=== PATIENT | female | born 1995 | race Caucasian/White ===

== ENCOUNTER → 2017-06-14 | Day surgery (SDC) | payer OTHER ==
[~2017-06-14] MED LIST: BUPIVACAINE HCL 0.5% INJ 30 ML VIAL INJ ONE; BUSPAR; CEFAZOLIN SOD 1 GM VIAL ONE; DEXAMETHASONE SOD PHOS INJ 4 MG/ML VIAL ONE; DOXEPIN; EFFEXOR ER; EFFEXOR XR 3737.5 MG PO; FENTANYL CITRATE/PF 100MCG/2 ML INJ ONE; GABAPENTIN300 MG PO; HEMOCYTE PLUS1 EACH; LIDOCAINE HCL 2% LOCAL INJ 5 ML SDV VIAL INJ ONE; MIDAZOLAM HCL 2 MG/2 ML VIAL ONE; NEOSTIGMINE 1 MG/ML 10ML VIAL ONE; ONDANSETRON HCL INJ 2 MG/ML VIAL ONE; PAXIL30 MG PO; PROPOFOL IV EMULSION 10 MG/ML 20 ML VIAL ONE; SEROQUEL200 MG PO; SEROQUEL25 MG PO; SEVOFLURANE INHAL SOLN 250 ML PEN BTL ONE; TESTOSTERO200 MG/1 M; TYLENOL WITH C1 EACH PO
--- OUTSIDE RECORDS SUMMARY | 2017-06-14 05:13 | XMS REPORT ---
Author Author Admin, [place] Organization [facility] [place] Adult [facility] Address Unknown Phone Unavailable Allergies, Adverse Reactions, Alerts Allergy Name Reaction Description Start Date Severity Status Provider HYDROCODONE Critical Active Logan Kraig O'Rene ROOFER APPLICATOR-C Conditions or Problems Problem Name Problem Code Onset Date Status Entry Date Provider Comment Standard Description Annotate Anemia unspecified 285.9 Active Logan Kraig O'Rene ROOFER APPLICATOR-C Anemia, unspecified Dyslipidemia 272.4 Active Logan Kraig O'Rene ROOFER APPLICATOR-C Other and unspecified hyperlipidemia BMI 45.0-49.9 Active Logan Kraig O'Rene ROOFER APPLICATOR-C Body Mass Index 45.0-49.9, adult Elevated blood pressure 796.2 Active Logan Kraig O' Rene ROOFER APPLICATOR-C Elevated blood pressure reading without diagnosis of hypertension Hormone imbalance 259.9 Active Logan Kraig O'Rene ROOFER APPLICATOR-C Unspecified endocrine disorder transmasculine MORBID OBESITY Active Logan Kraig O'Rene ROOFER APPLICATOR-C Morbid obesity Prediabetes 790.29 Active Logan Kraig O'Rene ROOFER APPLICATOR-C Other abnormal glucose Vitamin D deficiency 268.9 Active Logan Kraig O' Rene ROOFER APPLICATOR-C Unspecified vitamin D deficiency Acne, mild ICD-706.1 Inactive Logan Kraig O'Rene ROOFER APPLICATOR -C Diabetes, Screening for V77.1 Inactive Logan Kraig O 'Rene ROOFER APPLICATOR-C Screening for diabetes mellitus Diabetes, Screening for ICD-V77.1 Inactive Logan Kraig O'Rene ROOFER APPLICATOR-C Immunization update - HPV (final dose) ICD-V15.9 Inactive Logan Bliss'Rene ROOFER APPLICATOR-C Screening for anemia V78.1 Inactive Logan Bliss' Rene ROOFER APPLICATOR-C Screening for other and unspecified deficiency anemia Screening for anemia ICD-V78.1 Inactive Logan Kraig Bliss'Rene ROOFER APPLICATOR-C Screening for vitamin D deficiency V77.99 Inactive Logan Bliss'Rene ROOFER APPLICATOR-C Screening for other and unspecified endocrine, nutritional, metabolic, and immunity disorders Screening for vitamin D deficiency ICD-V77.99 Inactive Logan Kraig Bliss'Rene ROOFER APPLICATOR-C Screening, Cholesterol V77.91 Inactive Logan Bliss 'Rene ROOFER APPLICATOR-C Screening for lipoid disorders Screening, Cholesterol ICD-V77.91 Inactive Logan Bliss'Rene ROOFER APPLICATOR-C Screening, Thyroid Disorders V77.0 Inactive Logan Cornell O'Rene ROOFER APPLICATOR-C Screening for thyroid disorders Screening, Thyroid Disorders ICD-V77.0 Inactive Logan Bliss'Rene ROOFER APPLICATOR-C Acne, mild 706.1 Resolved Logan Bliss'Rene ROOFER APPLICATOR-C Other acne Immunization update - HPV (final dose) V15.9 Resolved Logan Bliss'Rene ROOFER APPLICATOR-C Unspecified personal history presenting hazards to health Medication List Medication Instructions Start Date Stop Date Generic Name NDC Status Provider Patient Instruction TESTOSTERONE CYPIONATE 200 MG/ML INTRAMUSCULAR SOLUTION 0.4 ml (80mg) injected subcu every 7 days TESTOSTERONE CYPIONATE 12294420608 Active Logan Bliss'Rene ROOFER APPLICATOR-C Active VITAMIN D3 2000 UNIT ORAL TABLET 1 tab By Mouth Every Day CHOLECALCIFEROL 81105648196 Active Logan Beard ROOFER APPLICATOR-C Active BENZACLIN WITH PUMP 1-5 % EXTERNAL GEL Apply small amount to affected area daily or Twice a Day As Needed for acne BENZACLIN WITH PUMP 1-5 % EXTERNAL GEL 400687 CLINDAMYCIN PHOS-BENZOYL PEROX Inactive BENZACLIN WITH PUMP 1-5 % EXTERNAL GEL Apply small amount to affected area daily or Twice a Day As Needed for acne CLINDAMYCIN PHOS-BENZOYL PEROX [id number] No Longer Active Logan Beard ROOFER APPLICATOR-C Active Advance Directives Directive Description Start Date DISCUSSED - NO DECISION MADE Immunizations Vaccine Administration Date Value Standard Description Human Papillomavirus vaccine (Gardasil) #3, (HPV #3) given human papilloma virus vaccine, quadrivalent Human Papillomavirus vaccine (Gardasil) #3, (HPV #3) Drug Name Gardasil 9 human papilloma virus vaccine, quadrivalent Vital Signs Date Name Value Unit Range Description blood pressure, diastolic 93 mm[Hg] BP guardado blood pressure, systolic 137 mm[Hg] BP sys height E&M 59 [in_us] Bdy height pulse rate E&M 79 /min Heart rate temperature E&M 96.9 [degF] Body temperature weight E&M 223 [lb_av] Weight Measured blood pressure, diastolic 94 mm[Hg] BP guardado blood pressure, systolic 143 mm[Hg] BP sys height E&M 59 [in_us] Bdy height pulse rate E&M 98 /min Heart rate temperature E&M 97.7 [degF] Body temperature weight E&M 223.25 [lb_av] Weight Measured Diagnostic Results Date Name Value Unit Range Description Lab Report: CBC With Differential/Platelet, Comp. Metabolic Panel (14), ... - Hematology lymphocyte count, blood, automated 2.2 X10E3/UL 10*3/mm3 0.7- 3.1 Lab Report: Comp. Metabolic Panel (14), CBC, Platelet, No Differential, ... - Chemistry urea nitrogen, blood 8 mg/dL 6-20 creatinine, serum 0.79 mg/dL 0.57-1.00 chloride, serum 99 mmol/L 96-106 Lab Report: Comp. Metabolic Panel (14), CBC, Platelet, No Differential, ... - Hematology mean corpuscular volume, RBC 88 fL 79-97 Lab Report: Comp. Metabolic Panel (14), CBC, Platelet, No Differential, ... - Chemistry triglyceride, serum, fasting 140 mg/dL 0-89 Lab Report: Comp. Metabolic Panel (14), CBC, Platelet, No Differential, ... - Hematology erythrocyte (RBC) count 5.74 X10E6/UL 10*6/mm3 3.77-5.28 Lab Report: Comp. Metabolic Panel (14), CBC, Platelet, No Differential, ... - Chemistry Estimated Glomerular Filtration Rate (calc) 109 mL/min/1.73m2 > 59 Lab Report: Comp. Metabolic Panel (14), CBC, Platelet, No Differential, ... - Hematology platelet count 310 X10E3/UL 10*3/mm3 862-446 2667/03/13 red blood cell distribution width 13.3 % 12.3-15.4 Lab Report: Comp. Metabolic Panel (14), CBC, Platelet, No Differential, ... - Chemistry protein, total, serum 8.1 g/dL 6.0-8.5 HDL cholesterol, serum 30 mg/dL >39 albumin/globulin ratio, serum 1.4 1.2-2.2 Lab Report: CBC With Differential/Platelet, Comp. Metabolic Panel (14), ... - Hematology eosinophils as percent of blood leukocytes 0 % Lab Report: CBC With Differential/Platelet, Comp. Metabolic Panel (14), ... - Chemistry Absolute Neutrophils 9.1 X10E3/UL 10*3/uL 1.4-7.0 Lab Report: CBC With Differential/Platelet, Comp. Metabolic Panel (14), ... - Hematology basophil count, absolute 0.0 x10E3/uL 0.0-0.2 Lab Report: Comp. Metabolic Panel (14), CBC, Platelet, No Differential, ... - Chemistry alanine aminotransferase (SGPT), serum 55 U/L 0-32 LDL cholesterol, serum 154 mg/dL 0-109 Lab Report: CBC With Differential/Platelet, Comp. Metabolic Panel (14), ... - Hematology monocytes as percent of blood leukocytes 5 % Lab Report: Comp. Metabolic Panel (14), CBC, Platelet, No Differential, ... - Chemistry cholesterol, serum 212 mg/dL 100-169 Lab Report: Comp. Metabolic Panel (14), CBC, Platelet, No Differential, ... - Hematology mean corpuscular hemoglobin concentration, RBC 34.1 G/DL % 31.5- 35.7 hemoglobin, blood 17.2 g/dL 11.1-15.9 leukocyte count, blood 7.3 X10E3/UL 10*3/mm3 3.4-10.8 hematocrit, blood 50.4 % 34.0-46.6 Lab Report: Comp. Metabolic Panel (14), CBC, Platelet, No Differential, ... - Chemistry globulin, serum 3.4 1.5-4.5 vitamin D 25-hydroxy, serum 23.4 ng/mL 30.0-100.0 testosterone, serum, free 21.9 pg/mL Not Estab. Lab Report: CBC With Differential/Platelet, Comp. Metabolic Panel (14), ... - Chemistry thyroid stimulating hormone, serum 2.050 u[iU]/mL 0.450-4.500 Lab Report: Comp. Metabolic Panel (14), CBC, Platelet, No Differential, ... - Chemistry albumin, serum 4.7 g/dL 3.5-5.5 very low density lipoproteins 28 mg/dL 5-40 calcium, serum 10.1 mg/dL 8.7-10.2 Lab Report: CBC With Differential/Platelet, Comp. Metabolic Panel (14), ... - Hematology basophils as percent of blood leukocytes 0 % monocyte count, blood, automated 0.6 X10E3/UL 10*3/uL 0.1-0.9 Lab Report: Comp. Metabolic Panel (14), CBC, Platelet, No Differential, ... - Chemistry urea nitrogen/creatinine ratio, serum 10 9-23 Lab Report: CBC With Differential/Platelet, Comp. Metabolic Panel (14), ... - Chemistry immature granulocytes, percentage of total cells, blood 0 % Lab Report: Comp. Metabolic Panel (14), CBC, Platelet, No Differential, ... - Genetics/fertility eGFR if 125 mL/min/1.73m2 >59 Lab Report: CBC With Differential/Platelet, Comp. Metabolic Panel (14), ... - Hematology lymphocytes as percent of blood leukocytes 19 % Lab Report: Comp. Metabolic Panel (14), CBC, Platelet, No Differential, ... - Chemistry carbon dioxide, venous blood 26 mmol/L 18-29 sodium, serum 144 mmol/L 134-144 Lab Report: CBC With Differential/Platelet, Comp. Metabolic Panel (14), ... - Chemistry hemoglobin A1C, blood, as % of total hemoglobin 6.0 % 4.8-5.6 Lab Report: Comp. Metabolic Panel (14), CBC, Platelet, No Differential, ... - Chemistry alkaline phosphatase, serum 80 U/L 39-117 testosterone, total 603 ng/dL Lab Report: CBC With Differential/Platelet, Comp. Metabolic Panel (14), ... - Hematology Eosinophil Absolute Count 0.0 X10E3/UL 10*3/uL 0.0-0.4 Lab Report: Comp. Metabolic Panel (14), CBC, Platelet, No Differential, ... - Hematology mean corpuscular hemoglobin, RBC 30.0 pg 26.6-33.0 Lab Report: Comp. Metabolic Panel (14), CBC, Platelet, No Differential, ... - Chemistry bilirubin, serum, total 0.6 mg/dL 0.0-1.2 Lab Report: CBC With Differential/Platelet, Comp. Metabolic Panel (14), ... - Hematology neutrophils as percent of blood leukocytes 76 % Lab Report: Comp. Metabolic Panel (14), CBC, Platelet, No Differential, ... - Chemistry blood glucose, random 94 mg/dL 65-99 potassium, serum 5.2 mmol/L 3.5-5.2 aspartate aminotransferase (SGOT), serum 29 U/L 0-40 Encounters Date Encounter Provider Code Facility 10:29:39 CDT Est Patient Exp Problem - 36165 Logan Kraig Bliss'Rene ROOFER APPLICATOR-C CPT-25776 [facility] [place] [facility] 11:38:36 CDT Est Patient Detailed - 89349 Logan Kraig Bliss'Rene ROOFER APPLICATOR- C CPT-21108 [facility] [place] [facility] 15:22:59 MEDICINAL CHEMIST Est Patient Detailed - 74512 Logan Kraig O'Rene ROOFER APPLICATOR- C CPT-42181 [facility] [place] Adult [facility] 16:54:09 MEDICINAL CHEMIST New Patient Detailed - 08038 Logan Kraig Bliss'Rene ROOFER APPLICATOR- C CPT-10789 [facility] [place] Adult [facility] Procedures Code Procedure Name Date Entry Date Standard Description CPT-03630 Gardasil (HPV) 9 - valent 16:56:00 MEDICINAL CHEMIST CPT-36799 Admin of Vaccine - Injection - 1 16:56:00 MEDICINAL CHEMIST
--- OUTSIDE RECORDS SUMMARY | 2017-06-14 05:13 | XMS REPORT ---
Author Author [facility] Address Unknown Phone Unavailable Care Team Providers Care Photoengraver Name Role Phone MARY ESCOBEDO Unavailable Unavailable Problems This patient has no known problems. Allergies, Adverse Reactions, Alerts This patient has no known allergies or adverse reactions. Medications This patient has no known medications. Results Test Description Test Time Test Comments Text Results Atomic Results Result Comments CHEST SINGLE (PORTABLE) [place] [address] Patient Name: YEISON PUENTES MR #: [id number] : 1995 Age/Sex: 21/F Req #: [id number] Adm Physician: Ordered by: JENISE ARAIZA MD Report #: [id number] Location: OR Room/Bed: Procedure: [id number] DX/CHEST SINGLE (PORTABLE) Exam Date: 12/08/16 Exam Time: 929 REPORT STATUS: Signed PROCEDURE: CHEST SINGLE (PORTABLE) TECHNIQUE: Portable AP chest INDICATION: Shortness of breath; wheezing COMPARISON: None. FINDINGS: Low lung volumes with associated vascular crowding. Normal heart size, mediastinal contour and pulmonary vasculature for technique and inspiration. Intact skeleton. CONCLUSION: Low lung volume without acute abnormality. Dictated by: Kyle Wiley M.D. on 12/08/2016 at 10:06 Electronically approved by: Kyle Wiley M.D. on 12/08/2016 at 10:06 Dictated By: KYLE WILEY MD 1006 Transcribed By: ELTON on 12/08/16 1006 COPY TO: JENISE ARAIZA MD
--- OUTSIDE RECORDS SUMMARY | 2017-06-14 05:13 | XMS REPORT | Clinical Summary ---
Author Author Phil [facility] Organization [facility] Address Unknown Phone Unavailable Care Team Providers Care Personal Lines Sales Executive Name Role Phone Ba Villa DO PCP Allergies Active Allergy Reactions Severity Noted Date Comments Hydrocodone 02/10/2016 Current Medications Prescription Sig. Disp. Refills Start End Date Status Date doxepin (SINEquan) 10 MG TK 1 C PO QD 0 10/27/19 Active capsule 17 busPIRone (BUSPAR) 30 MG Take 30 mg by mouth 2 Active tablet (two) times a day. HEMOCYTE-PLUS 106 mg TK 1 C PO QD 3 11/11/19 Active iron- 1 mg capsule 17 testosterone cypionate INJECT 0.4 ML SC Q 7 1 10/08/19 Active (DEPOTESTOTERONE DAYS. 17 CYPIONATE) 200 mg/mL injection venlafaxine XR TK 3 CS PO QD WF 0 10/27/19 Active (EFFEXOR-XR) 75 MG 24 hr 17 capsule venlafaxine XR TK 1 C PO QD WF 1 10/17/19 Active (EFFEXOR-XR) 150 MG 24 hr 17 capsule gabapentin (NEURONTIN) Take 300 mg by mouth 3 Active 300 mg capsule (three) times a day. PARoxetine (PAXIL) 10 MG Take 10 mg by mouth every Active tablet morning. allopurinol (ZYLOPRIM) Take 100 mg by mouth 11/24/19 Discontin 100 MG tablet daily. 17 ued traMADol-acetaminophen TK 1 TO 2 TS PO Q 4 TO 6 0 11/03/19 11/24/19 Discontin (ULTRACET) 37.5-325 mg H PRN 17 17 ued per tablet venlafaxine (EFFEXOR) 100 Take 100 mg by mouth 2 11/24/19 Discontin MG tablet (two) times a day. 17 ued acetaminophen-codeine Take 1 tablet by mouth 11/24/19 Discontin (TYLENOL WITH CODEINE #3) every 4 (four) hours as 17 ued 300-30 mg per tablet needed for moderate pain. keTOROlac (TORadol) 10 mg Take 10 mg by mouth every 11/24/19 Discontin tablet 6 (six) hours as needed 17 ued for moderate pain. methylPREDNISolone TK UTD 0 11/10/19 11/24/19 Discontin (MEDROL DOSEPAK) 4 mg 17 17 ued tablet busPIRone (BUSPAR) 15 MG TK 1 T PO BID 1 10/17/19 11/24/19 Discontin tablet 17 17 ued Hospital, Clinic, or Ordered Dose Route Frequency Start End Date Status Other Facility Date Administered Medication betamethasone acetate & 3 mg lesn Once 11/10/19 11/24/19 Discontin sodium phosphate 17 17 ued (CELESTONE) injection 3 mgIndications: Madelung's deformity lidocaine (XYLOCAINE) 10 5 mg inj Once 11/10/19 11/24/19 Discontin mg/mL (1 %) injection 5 17 17 ued mgIndications: Madelung's deformity Active Problems Problem Noted Date Anu'darcie avascular necrosis of lunate, 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 Right wrist pain 11/30/2015 Encounters Date Type Specialty Care Team Description 03/29/2017 Office Visit Orthopedic Surgery Silvana Hernandes Left wrist pain (Primary MD Margie Dx) 02/17/2017 Office Visit Orthopedic Surgery Silvana Hernandes MD necrosis of lunate, adult (Primary Dx) 01/18/2017 Office Visit Orthopedic Surgery Silvana Hernandes MD necrosis of lunate, adult (Primary Dx); Right wrist pain 12/14/2016 Office Visit Orthopedic Surgery Silvana Hernandes MD necrosis of lunate, adult (Primary Dx); Right wrist pain 12/07/2016 Office Visit Orthopedic Surgery Silvana Hernandes MD necrosis of lunate, adult (Primary Dx) 11/28/2016 [facility] General Surgery Silvana Hernandes MD 11/28/2016 Procedure Pass General Surgery 11/28/2016 Surgery General Surgery Silvana Hernandes FUSION W/ MD Margie DENERVATION-RIGHT WRIST 11/23/2016 Hospital Radiology Silvana Hernandes Preoperative testing Encounter MD Margie 11/23/2016 Pre-Admit Pre-Admission Testing Silvana Hernandes Preoperative testing Testing MD Margie (Primary Dx) Appointment 11/23/2016 Anesthesia General Surgery Yadira Garcia MD Event 11/10/2016 Office Visit Orthopedic Surgery Silvana Hernandes Kienbock' s avascular MD Margie necrosis of lunate, adult (Primary Dx) 11/04/2016 Office Visit Orthopedic Surgery Silvana Hernandes Bilateral wrist pain MD Margie (Primary Dx); Madelung's deformity; Kienbock's avascular necrosis of lunate, 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 Family History Medical History Relation Name Comments Hypertension Mother Relation Name Status Comments Mother Social History Tobacco Use Types Packs/Day Years Used Date Never Smoker Smokeless Tobacco: Never Used Alcohol Use Drinks/Week oz/Week Comments No Sex Assigned at Date Recorded Not on file Last Filed Vital Signs Vital Sign Reading Time Taken Blood Pressure 131/69 11/28/2016 12:05 PM CDT Pulse 0 11/28/2016 12:15 PM CDT Temperature 36.7 C (98 F) 11/28/2016 12:05 PM CDT Respiratory Rate 10 11/28/2016 12:05 PM CDT Oxygen Saturation 90% 11/28/2016 12:05 PM CDT Inhaled Oxygen - - Concentration Weight 101 kg (222 lb 10.6 oz) 03/29/2017 2:22 PM [facility] Height 149.9 cm (4' 11") 03/29/2017 2:22 PM [facility] Body Mass Index 44.97 03/29/2017 2:22 PM [facility] Plan of Treatment Health Maintenance Due Date Last Done Comments CHLAMYDIA SCREENING 2013 INFLUENZA VACCINE 10/11/2017 Implants Implanted Type Area Electric Meter Tester Shop Device Expiration Model / Identifier Date Serial / Lot Putjono Marino [place] Tiss Form Jar 5ml Human Right: [employer] 2019 [id number] / - [id number] - [id number] Tissue Wrist SPINAL GRAFT [id number] Implanted: Qty: 1 on 11/28/2016 by [employer]plants [employer] / Silvana Hernandes MD [id number] Unicortical Screw, 2.8mm X 5.0mm, IPM Right: SKELETAL UCNL [id number] Ti, Wrist Arthrodesis Nails - IMPLANT Wrist DYNAMICS TS / [id number] DEVICES / Implanted: Qty: 1 on 11/28/2016 by VENDOR LOT Silvana Hernandes MD NA Implate Wrist Arthrodesis Nail, IPM Right: SKELETAL IMP MCN Metacarpal, Standard, 4.0, Ti - IMPLANT Wrist DYNAMICS S40 / [id number] DEVICES / Implanted: Qty: 1 on 11/28/2016 by VENDOR Silvana Morel MD NA Unicortical Screw, 2.8mm X 10.0mm, IPM Right: SKELETAL UCNL [id number] Ti, Wrist Arthrodesis Nails - IMPLANT Wrist DYNAMICS TS / [id number] DEVICES / Implanted: Qty: 2 on 11/28/2016 by VENDOR Silvana Morel MD NA Set Screw, 3.0mm X 2.0mm, Cocr, IPM Right: SKELETAL STSC [id number] Wrist Arthrodesis Nails - [id number] IMPLANT Wrist DYNAMICS CS / Implanted: Qty: 2 on 11/28/2016 by DEVICES / Silvana Hernandes MD VENDOR LOT NA Implate Wrist Arthrodesis Nail, IPM Right: SKELETAL IMP DRN Distal Radius, Short, Ti - IMPLANT Wrist DYNAMICS SHT / [id number] DEVICES / Implanted: Qty: 1 on 11/28/2016 by 11/19/9998 Silvana Hernandes MD Procedures Procedure Name Priority Date/Time Associated Diagnosis Comments ANESTHESIA PERIPHERAL Routine 11/28/2016 BLOCK 9:34 AM CDT Procedure Note - Nellie Burks MD - 11/28/2016 9:23 AM CDT Peripheral Block Performed by: NELLIE BURKS Authorized by: NELLIE BURKS Patient location: OR. Start Time: 11/28/2016 9:23 AM Staff: Anesthesio logist: NELLIE BURKS Performed by: Anesthesio logist Preprocedu re: patient identified , IV checked, site and side verified, risks and benefits discussed, procedure verified, surgical consent complete, patient position confirmed, monitors and equipment checked, pre-op evaluation complete and site marked Peripheral Nerve Block: Patient Position: Supine Prep: Betadine and patient draped Monitoring : Blood pressure monitoring , continuous pulse oximetry, heart rate and CO2 Block Type: Supraclavi cular Laterality : Right Injection Technique: Single injection Procedures : ultrasound guided Local Infiltrati on (See MAR for details): Ropivacain e Needle: Needle Type: Tuohy Needle gauge: 18g. Assessment : Injection Assessment : Visualized needle/loc al anesthetic surroundin g nerve, visualized pertinent vascular structures and nerves, needle tip visualized at all times during injection of medication , intermitte nt aspiration during local anesthetic administra tion and no symptoms of intraneura l/intraven ous injection Heart Rate Change: No Slow Fractionat ed Injection: Yes Block outcome: No apparent complicati ons, patient comfortabl e and patient tolerated procedure well FUSION W/ 11/28/2016 Kienbock disease, adult DENERVATION-RIGHT WRIST 9:10 AM CDT Special Needs BMI 42.49NERVE BLOCKHAND TABLE MINI C-ARMHAND & FOOT SETHIGH -SPEED BURRDBX PUTTY 5CCSKELETA L DYNAMICS IMPLATE IMPLANTS after 06/13/2016 Results * XR Wrist 3+ Vw Left (03/29/2017 2:34 PM) Specimen Performing Laboratory [facility] [address] [place] [address] Narrative 3 views left wrist: Significantly ulnar-negative with abnormal slope to the radius. Lunate is normal appearing. Cartilage surfaces appear well maintained. * XR Wrist 2 Vw Right (02/17/2017 2:11 PM) Only the most recent of 2 results within the time period is included. Specimen Performing Laboratory [facility] [address] [place] [address] Narrative 2 v R wrist:IMPLATE IM nail in place in wrist with some solid fusion mass visible on ulnar aspect. * XR Wrist 3+ Vw Right (01/18/2017 9:57 AM) Spec[facility] [address] [place] [address] Narrative Intramedullary nail and screws are in place without any signs of loosening or breakage. It looks like there is some beginning of fusion across the radial lunate and intercarpal joint. * XR Chest 2 Vw (11/23/2016 11:03 AM) Specimen Performing Laboratory [facility] [address] [place] [address] Narrative EXAMINATION:XR CHEST 2 VW CLINICAL HISTORY:Z01.818 Encounter for other preprocedural examination, PREOP COMPARISON:None IMPRESSION: 1.Lungs are clear and the heart size is normal. 2.The vessels are not congested. There are no pleural effusions. [id number] Procedure Note Hm Interface, Radiology Results Incoming - 11/23/2016 11:13 AM CDT EXAMINATION: XR CHEST 2 VW CLINICAL HISTORY: Z01.818 Encounter for other preprocedural examination, PREOP COMPARISON: None IMPRESSION: 1. Lungs are clear and the heart size is normal. 2. The vessels are not congested. There are no pleural effusions. [id number] * ECG Pre/Post Op (11/23/2016 10:25 AM) Component Value Ref Range Ventricular rate 76 Atrial rate 76 OK interval 108 QRSD interval 90 QT interval 352 QTC interval 396 QRS axis 1 179 T wave axis 177 EKG impression Sinus rhythm with short OK-Right axis deviation-ST & T wave abnormality, consider inferior ischemia-Abnormal ECG-No previous ECGs available- Specimen Performing Laboratory [facility] [address] [place] [id number] * Urinalysis, automated with microscopy (11/23/2016 10:09 AM) Component Value Ref Range Color, UA Yellow Appearance, UA Clear Specific gravity, UA 1.009 1.001 - 1.035 pH, UA 7.0 5.0 - 8.5 Protein, UA Negative Negative Glucose, UA Negative Negative Ketones, UA Negative Negative Bilirubin, UA Negative Negative Blood, UA Negative Negative Nitrite, UA Positive (A) Negative Urobilinogen, UA Negative <2.0 Leukocyte esterase, UA Large (A) Negative Epithelial cells, UA Few /HPF WBC, UA 6 (H) 0 - 5 /HPF RBC, UA 2 0 - 5 /HPF Bacteria, UA Trace None seen Yeast, UA None seen Yeast with pseudohyphae, None seen UA Specimen Performing Laboratory Urine [facility] [address] [place] [address] * Estimated GFR (11/23/2016 10:07 AM) Component Value Ref Range GFR Non Af Amer >90 mL/min/1.73 m2 GFR Af Amer >90 mL/min/1.73 m2 Comment: Chronic kidney disease: <60 mL/min/1.73m2 Kidney failure: <15 mL/min/1.73m2 The estimated GFR is calculated from the IDMS-traceable Modification of Diet in Renal Disease Equation. The accuracy of the calculation is poor when the creatinine is normal. Calculated values >90 mL/min/1.73m2 are not reported. This equation has not been validated in children (<18 years), women, the elderly (>70 years), or ethnic groups other than Caucasians and Americans. Specimen Performing Laboratory Plasma specimen [facility]OM[facility]IC[facility] [address] [place] [address] * Partial thromboplastin time, activated (11/23/2016 10:07 AM) Component Value Ref Range PTT 35.2 23.0 - 36.0 sec Comment: PTT therapeutic range for unfractionated heparin is 61.0-112.0 seconds which corresponds to Anti-Xa 0.3-0.7 U/ml. Note: Change in Panic Value The PTT Panic Value is changing from 110 sec. to 100 sec. due to new instrumentation and reagents. Correlation studies have been performed to validate this result. Specimen Performing Laboratory Blood [facility] GENOM[facility]IC[facility] [address] [place] [address] * Prothrombin time with INR (11/23/2016 10:07 AM) Component Value Ref Range Prothrombin time 13.3 12.0 - 15.0 sec INR 1.01 0.92 - 1.12 Comment: For patients on anticoagulant therapy, reference ranges below: Indication: INR Value Treatment of Venous Thrombosis, 2.0-3.0 pulmonary emboli, or prophylaxis of a venous thrombosis, or systemic emboli. High dose, high risk patients 3.0-4.5 with mechanical valves. NOTE: INR values over 3.0 are sometimes associated with gastrointestinal hemorrhage, especially values over 4.0. Specimen Performing Laboratory Blood [facility] GENOM[facility]IC[facility] [address] [place] [address] * CBC with platelet and differential (11/23/2016 10:07 AM) Component Value Ref Range WBC 6.5 4.5 - 12.5 k/uL RBC 6.05 (H) 4.04 - 5.86 m/uL HGB 14.5 11.5 - 15.3 g/dL HCT 46.1 (H) 34.0 - 45.0 % MCV 76.2 (L) 80.0 - 98.0 fL MCH 24.0 (L) 27.0 - 34.0 pg MCHC 31.5 31.5 - 36.5 g/dL RDW - SD 60.1 (H) 37.0 - 51.0 fL MPV 11.4 (H) 7.4 - 10.4 fL Platelet count 366 150 - 400 k/uL Nucleated RBC 0.00 /100 WBC Neutrophils 38.6 36.0 - 66.0 % Lymphocytes 44.7 (H) 24.0 - 44.0 % Monocytes 13.9 (H) 0.0 - 6.0 % Eosinophils 1.4 0.0 - 6.0 % Basophils 1.2 0.0 - 1.2 % Immature granulocytes 0.2 0.0 - 1.0 % Specimen Performing Laboratory Blood [facility] GENOMIC MEDICINE [address] [place] [address] * Comprehensive metabolic panel (11/23/2016 10:07 AM) Component Value Ref Range Sodium 140 135 - 150 mEq/L Potassium 4.0 3.5 - 5.0 mEq/L Chloride 103 100 - 109 mEq/L CO2 28 24 - 32 mmol/L Anion gap 9 7 - 15 mEq/L Comment: Starting from June , anion gap calculation no longer incorporates potassium. Please note the change. BUN 7 7 - 18 mg/dL Creatinine 0.7 (L) 0.8 - 1.5 mg/dL Glucose 78 65 - 100 mg/dL Calcium 10.6 8.6 - 10.7 mg/dL Protein 8.3 (H) 6.3 - 8.2 g/dL Albumin 3.9 3.2 - 5.0 g/dL A/G ratio 0.9 0.7 - 3.8 Alkaline phosphatase 79 30 - 120 U/L AST 29 15 - 37 U/L ALT 69 (H) 30 - 65 U/L Total bilirubin 0.5 0.2 - 1.2 mg/dL Specimen Performing Laboratory Plasma specimen [facility] AND GENOMIC MEDICINE [address] [place] [address] [place] [address] * XR Wrist 3Vw Bilateral (11/04/2016 12:05 PM) Specimen Performing Laboratory [facility] [address] [place] [address] Narrative 3 views bilateral wrists: 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 She may have developed an autofusion of the lunate to triquetrum. after 06/13/2016
--- NOTE | 2017-06-14 08:49 | Operative Report ---
DATE OF PROCEDURE: June 14, 2017 PREOPERATIVE DIAGNOSIS: Right foot tarsal tunnel syndrome. POSTOPERATIVE DIAGNOSIS: Right foot tarsal tunnel syndrome. PLANNED PROCEDURE: Right tarsal tunnel release. BACKPACKERS MANAGER: None. ANESTHESIA: General with a postoperative block consisting of 15 mL of 0.5% Marcaine plain mixed with 1 mL of dexamethasone phosphate. HEMOSTASIS: Pneumatic thigh tourniquet set at 350 mmHg for a total time of approximately 30 minutes. MATERIALS: 4-0 Prolene. ESTIMATED BLOOD LOSS: Less than 10 mL. PATHOLOGY: None. DETAILS OF PROCEDURE: Patient was seen in the preoperative waiting room where the correct procedure and site was identified. The patient was brought to the operating room and placed on the operating table in the supine position. General anesthesia was initiated at this time. A well-padded pneumatic tourniquet was placed about the patient's right thigh. The right foot, ankle and leg was then scrubbed, prepped and draped in the usual aseptic manner. The right foot, ankle and leg was exsanguinated with an Esmarch bandage, and the pneumatic thigh tourniquet was inflated to 350 mmHg for a total time of approximately 30 minutes. Attention was directed to the medial aspect of the patient's right ankle. A curvilinear incision was made directly 1.5 cm posterior to the distal tip of the medial malleolus extending to the level of the carlotta pedis. The incision was carried through subcutaneous tissues them from deeper underlying structures. All vital neurovascular structures were identified and retracted medially and laterally. All bleeders were cauterized or ligated as deemed necessary. At this time, blunt dissection was carried down to the level of the laciniate ligament. Utilizing hemostats and tenotomy scissors, the laciniate ligament was transected. The edges were cauterized with a Bovie. The area was continued with blunt dissected until good visualization of the posterior tibial nerve with venae comitantes and the posterior tibial nerve was identified. The posterior tibial nerve was traced proximally and distally. The medial and lateral plantar branches were identified as they were traveling through the carlotta pedis. This was bluntly expanded utilizing hemostats to allow for dilation of the canal. The same procedure was performed proximally to dilate the canal to allow for release of entrapment of the posterior tibial nerve. Prior to wound closure, all the bleeders were cauterized or ligated as deemed necessary. The wound was irrigated copiously with sterile saline. The wound was reapproximated with simple interrupted sutures of 4-0 Prolene. The incision site was dressed with Adaptic, 4 x 4's, Kerlix, Yann wrap, and a CAM walker boot. The patient tolerated the procedure and anesthesia well. The patient was transferred to the postoperative recovery unit with vital signs stable and vascular status intact. The patient was monitored there for a short period time before being sent home with the following written and oral instructions: 1. Keep the dressing clean, dry and intact. 2. The patient is to remain nonweightbearing in a CAM walker boot and crutches, and to avoid excessive ambulation until being seen in the office. 3. The patient was given the office number and instructed to contact us if any problems should arise. Job#: [id number] [email or web address]
== END | disposition home or self-care (01) ==
LOC: OR 05:11
PROVIDERS: ATTEND Podiatrist Foot & Ankle Surgery
DX: G57.51 Tarsal tunnel syndrome, right lower limb (principal); F32.9 Major depressive disorder, single episode, unspecified; Z87.890 Personal history of sex reassignment
CPT/HCPCS: 28035; 81025; J0690; J1100; J2001; J2250; J2405; J2710